=== PATIENT | male | born 1960 | race Caucasian/White ===

== ENCOUNTER 2021-06-18 18:28 | Inpatient (IN) | payer BC, OTHER ==
--- OUTSIDE RECORDS SUMMARY | 2021-06-18 18:31 | XMS REPORT | Continuity of Care Document ---
:1960 Author Organization [facility] t Address [address] [place] [address] Dr. Adames [address] [place] [id number] Care Team Providers Name Role Phone Unavailable Unavailable Unavailable Problems This patient has no known problems. Allergies, Adverse Reactions, Alerts This patient has no known allergies or adverse reactions. Medications This patient has no known medications. Procedures This patient has no known procedures. Results This patient has no known results.
[2021-06-18 19:22] LABS: Absolute Lymphocytes (CBC) 1.4 K/uL (0.7-4.9); Basophils % 0.4 % (0-1.3); Hematocrit 39.6 % (39.6-49.0); Lymphocytes % 16.5 % (15.3-44.8); MPV 9.2 fL (7.6-11.3)
[2021-06-18 19:28] LABS: Protime INR 1.11
[2021-06-18] MEDS ORDERED: MORPHINE 2 MG/ML SYR ONE (19:44)
[2021-06-18] MEDS ORDERED: ONDANSETRON 4 MG/2 ML VIAL ONE (19:44)
[2021-06-18 19:59] LABS: Albumin 3.7 g/dL (3.4-5.0); Bilirubin Direct 0.1 mg/dL (0-0.2); Bilirubin Total 0.4 mg/dL (0.2-1.0); Potassium 3.5 mmol/L (3.5-5.1)
--- NOTE | 2021-06-18 20:04 | RAD REPORT ---
EXAM DESCRIPTION: RAD - Chest Single View - 06/18/2021 7:42 pm CLINICAL HISTORY: CHEST PAIN Chest pain. COMPARISON: Chest Pa And Lat (2 Views) dated 06/11/2016 FINDINGS: Portable technique limits examination quality. The lungs are grossly clear. The heart is normal in size. No displaced fractures. IMPRESSION: No acute intrathoracic process suspected.
[2021-06-18 20:10] LABS: Troponin (Emerg Dept Use Only) 5.73 ng/mL (0.0-0.045)
[2021-06-18] MEDS ORDERED: ASPIRIN 81 MG CHEWABLE TABLET ONE (20:38)
--- NOTE | 2021-06-18 21:30 | RAD REPORT ---
EXAM DESCRIPTION: CT - Chest For Pe Angio - 06/18/2021 9:11 pm CLINICAL HISTORY: Chest pain. CHEST PAIN COMPARISON: No comparisons TECHNIQUE: CT angiogram of the pulmonary arteries was performed with MIP. All CT scans are performed using dose optimization technique as appropriate and may include automated exposure control or mA/KV adjustment according to patient size. FINDINGS: No evidence of pulmonary thromboembolism. No acute aortic finding demonstrated. Mild dependent opacities are present in both posterior lung bases. No focal infiltrate is detected. No significant pericardial or pleural fluid. No concerning bony finding. IMPRESSION: No evidence of pulmonary thromboembolism.
[2021-06-18] MEDS ORDERED: HEPARIN 5000 UNIT/ML 1 ML VIAL ONE (21:36)
[2021-06-18] MEDS ORDERED: HEPARIN/D5W 25,000 UNIT/500 ML BAG IV ONE (21:43)
--- NOTE | 2021-06-18 21:47 | ER ---
Nurse's Notes [facility] Name: Andrei Bee Age: 60 yrs Sex: Male : 1960 Arrival Date: 06/18/2021 Time: 18:29 Bed 16 Private MD: Diagnosis: Non ST elevation [place] Presentation: 06/18 18:39 Chief complaint: Patient states: L arm pain radiates into L jaw and upper chest off/on ll1 since . + palpitations, weakness, and some SOB. Coronavirus screen: Client denies travel out of the [place] in the last 14 days. At this time, the client does not indicate any symptoms associated with coronavirus-19. Ebola Screen: Patient denies travel to an Ebola-affected area in the 21 days before illness onset. Initial Sepsis Screen: Does the patient meet any 2 criteria? No. Patient's initial sepsis screen is negative. Does the patient have a suspected source of infection? No. Patient's initial sepsis screen is negative. Risk Assessment: Do you want to hurt yourself or someone else? Patient reports no desire to harm self or others. Onset of symptoms was June 15, 2021. 18:39 Method Of Arrival: Wheelchair ll1 18:39 Acuity: JESU 3 ll1 Triage Assessment: 23:17 General: Appears in no apparent distress. Behavior is calm, cooperative. Pain: ak2 Complains of pain in chest. Historical: - Allergies: 18:38 No Known Allergies; ll1 - PMHx: 18:38 Hypertensive disorder; Hypothyroidism; Anxiety; GERD; ll1 - PSHx: 18:38 hernia repair; ll1 - Immunization history:: Client reports receiving the 1st dose of the Covid vaccine, Flu vaccine is not up to date. - Social history:: Smoking status: Patient denies any tobacco usage or history of. Screenin:17 Abuse screen: Denies threats or abuse. Denies injuries from another. Nutritional ak2 screening: No deficits noted. Tuberculosis screening: No symptoms or risk factors identified. Fall Risk None identified. Assessment: 23:16 Pain: Pain does not radiate. Pain began 2-3 days ago. Cardiovascular: No deficits noted.ak2 06/19 00:22 General: Appears in no apparent distress. Neuro: No deficits noted. Respiratory: No ak2 deficits noted. 04:15 General: trop:7.95, physician aware. ak2 Vital Signs: 06/18 18:39 BP 131 / 86; Pulse 79; Resp 17; Temp 98.9; Pulse Ox 98% ; Weight 63.5 kg; Height 5 ft. ll1 7 in. (170.18 cm); Pain 5/10; 23:16 BP 136 / 77; Pulse 66; Resp 18; Pulse Ox 97% on R/A; ak2 18:39 Body Mass Index 21.93 (63.50 kg, 170.18 cm) ll1 ED Course: 18:29 Patient arrived in ED. ds1 18:37 Arm band placed on. ll1 18:40 Triage completed. 1 18:41 Lamont Keller PA is PHCP. [facility] 18:41 Qamar Rasmussen MD is Attending Physician. jmm 19:12 Inserted saline lock: 20 gauge in right antecubital area, using aseptic technique. ds4 Blood collected. 19:42 XRAY Chest (1 view) In Process Unspecified. EDMS 21:10 CT Chest For PE Angio In Process Unspecified. EDMS 21:46 Supa Frias is Hospitalizing Provider. jmm 23:17 Patient has correct armband on for positive identification. getter welder on. Pulse ak2 ox on. NIBP on. 23:17 No provider procedures requiring assistance completed. Patient maintains SpO2 ak2 saturation greater than 95% on room air. 06/19 06:59 Sancho Nguyen, RN is Primary Nurse. bp 16:53 Patient admitted, IV remains in place. vg1 Administered Medications: 06/18 19:28 Drug: morphine 2 mg Route: IVP; Site: right antecubital; ak2 19:28 Drug: Zofran (Ondansetron) 4 mg Route: IVP; Site: right antecubital; ak2 20:17 Drug: Aspirin Chewable Tablet 324 mg Route: PO; ak2 21:19 Drug: Heparin ([place]-Bolus No thrombolytic) - HEParin 60 units/kg {Co-Signature: ld1 ak2 (Michelle Hoskins RN).} Route: IVP; Site: right antecubital; 21:57 Drug: Heparin ([place] Drip) 12 units/kg/hr - (HEParin 72619 units, D5W 500 ml) ak2 {Co-Signature: ld1 (Michelle Hoskins RN).} Route: IV; Rate: calculated rate; Site: right antecubital; Outcome: 21:46 Decision to Hospitalize by Provider. gokul 06/19 16:53 Admitted to Tele accompanied by tech, via stretcher, room 224, with chart, Report vg1 called to REGLA Martin Condition: stable Instructed on the need for admit. 17:23 Patient left the ED. iw Signatures: Dispatcher [employer] EDMS Lamont Keller PA PA Cassi Armstrong ds1 Marion May, RN RN iw Philipp Padilla ds4 Sancho Nguyen RN RN Atiya Onofre RN RN vg1 Enmanuel Tony RN RN 1 Willy Ramon ak2 Michelle Hoskins RN ld1
--- NOTE | 2021-06-18 21:48 | EDPHYS ---
Physician Documentation [facility] Name: Andrei Bee Age: 60 yrs Sex: Male : 1960 Arrival Date: 06/18/2021 Time: 18:29 Bed 16 Private MD: ED Physician Qamar Rasmussen HPI: 06/18 18:50 This 60 yrs old Male presents to ER via Wheelchair with complaints of Chest jmm Pain, Arm Pain. 18:50 The patient or guardian reports chest pain that is located primarily in the substernal jmm area. Onset: gradually, 3 day(s) ago. The pain radiates to the left arm, Associated signs and symptoms: Pertinent positives: headache, shortness of breath. The chest pain is described as aching, a pressure. Duration: The patient or guardian reports multiple episodes, that wax and wane. Modifying factors: The symptoms are alleviated by nothing. the symptoms are aggravated by nothing. Historical: - Allergies: 18:38 No Known Allergies; ll1 - PMHx: 18:38 Hypertensive disorder; Hypothyroidism; Anxiety; GERD; ll1 - PSHx: 18:38 hernia repair; ll1 - Immunization history:: Client reports receiving the 1st dose of the Covid vaccine, Flu vaccine is not up to date. - Social history:: Smoking status: Patient denies any tobacco usage or history of. ROS: 18:50 Constitutional: Negative for fever, chills, and weight loss. jmm 18:50 Cardiovascular: Positive for chest pain. 18:50 Respiratory: Positive for shortness of breath. 18:50 All other systems are negative. Exam: 18:50 Head/Face: atraumatic. Eyes: EOMI, no conjunctival erythema appreciated ENT: Moist jmm Mucus Membranes Neck: Trachea midline, Supple Chest/axilla: Normal chest wall appearance and motion. Cardiovascular: Regular rate and rhythm. No edema appreciated Respiratory: Normal respirations, no respiratory distress appreciated Abdomen/GI: Non distended, soft Back: Normal ROM Skin: General appearance color normal MS/ Extremity: Moves all extremities, no obvious deformities appreciated, no edema noted to the lower extremities Neuro: Awake and alert, normal gait Psych: Behavior is normal, Mood is normal, Patient is cooperative and pleasant 18:50 Constitutional: The patient appears in no acute distress, alert, awake. Vital Signs: 18:39 BP 131 / 86; Pulse 79; Resp 17; Temp 98.9; Pulse Ox 98% ; Weight 63.5 kg; Height 5 ft. ll1 7 in. (170.18 cm); Pain 5/10; 23:16 BP 136 / 77; Pulse 66; Resp 18; Pulse Ox 97% on R/A; ak2 18:39 Body Mass Index 21.93 (63.50 kg, 170.18 cm) ll1 MDM: 18:50 Patient medically screened. [facility] 21:44 Data reviewed: vital signs, nurses notes. Counseling: I had a detailed discussion with gokul the patient and/or guardian regarding: the historical points, exam findings, and any diagnostic results supporting the discharge/admit diagnosis, lab results, radiology results, the need for further work-up and treatment in the hospital. ED course: Patient has mild pain in the ED. Vital signs are within normal limits. I discussed this along with lab values and EKG with Dr. Blackburn who recommended heparin drip and will most likely perform cardiac catheterization in the morning.. 06/18 18:51 Order name: Basic Metabolic Panel [facility] 06/18 18:51 Order name: CBC with Diff; Complete Time: 19:[address] [facility] 06/18 18:51 Order name: LFT's; Complete Time: 20:[address] [facility] 06/18 18:51 Order name: Magnesium; Complete Time: 20:[address] [facility] 06/18 18:51 Order name: NT PRO-BNP; Complete Time: 20:[address] [facility] 06/18 18:51 Order name: PT-INR; Complete Time: 20:[address] [facility] 06/18 18:51 Order name: Troponin (emerg Dept Use Only); Complete Time: 20:[address] [facility] 06/18 18:51 Order name: Basic Metabolic Panel; Complete Time: 20:13 [facility] 06/18 20:49 Order name: Troponin (emerg Dept Use Only) [facility] 06/18 20:50 Order name: Troponin (Emerg Dept Use Only); Complete Time: 00:23 [facility] 06/18 21:07 Order name: SARS-COV-2 RT PCR; Complete Time: 21:07 [facility] 06/19 03:22 Order name: CBC with Automated Diff [facility] 06/19 03:44 Order name: Troponin I [facility] 06/18 18:51 Order name: XRAY Chest (1 view); Complete Time: 20:[address] [facility] 06/18 18:51 Order name: EKG; Complete Time: 18:[address] [facility] 06/18 18:51 Order name: Cardiac monitoring; Complete Time: 19:[address] [facility] 06/18 18:51 Order name: EKG - Nurse/Tech; Complete Time: 19:[address] [facility] 06/18 18:51 Order name: IV Saline Lock; Complete Time: 19:[address] [facility] 06/18 18:51 Order name: Labs collected and sent; Complete Time: 19:[address] [facility] 06/18 18:51 Order name: O2 Per Protocol; Complete Time: 19:[address] [facility] 06/18 20:44 Order name: CT Chest For PE Angio; Complete Time: 21:[address] [facility] 06/19 03:44 Order name: Basic Metabolic Panel [facility] 06/19 03:44 Order name: Troponin I [facility] 06/19 03:44 Order name: Lipid Profile [facility] 06/18 18:51 Order name: O2 Sat Monitoring; Complete Time: 19:[address] [facility] Administered Medications: 19:28 Drug: morphine 2 mg Route: IVP; Site: right antecubital; ak2 19:28 Drug: Zofran (Ondansetron) 4 mg Route: IVP; Site: right antecubital; ak2 20:17 Drug: Aspirin Chewable Tablet 324 mg Route: PO; ak2 21:19 Drug: Heparin ([place]-Bolus No thrombolytic) - HEParin 60 units/kg {Co-Signature: ld1 ak2 (Michelle Hoskins RN).} Route: IVP; Site: right antecubital; 21:57 Drug: Heparin ([place] Drip) 12 units/kg/hr - (HEParin 14504 units, D5W 500 ml) ak2 {Co-Signature: ld1 (Michelle Hoskins RN).} Route: IV; Rate: calculated rate; Site: right antecubital; Disposition Summary: 06/18/21 21:46 Hospitalization Ordered Hospitalization Status: Inpatient Admission [facility] Provider: Supa Frias Condition: Stable jm Problem: new jmm Symptoms: are unchanged [facility] Bed/Room Type: Standard [facility] Location: Telemetry/MedSurg (Inpatient)(06/19/21 16:04) bd Room Assignment: 224(06/19/21 16:04) bd Diagnosis - Non ST elevation [place] [facility] Forms: - Medication Reconciliation Form [facility] - SBAR form [facility] Addendum: 06/26/2021 07:05 Co-signature as Attending Physician, Qamar Rasmussen MD I agree with the assessment and r n plan of care. Attestation: The patient's history, exam findings, diagnostics, and a summary of any interventions or procedures was reviewed in detail with Lamont SANDOVAL. Signatures: Dispatcher [employer] EDVT Farzana Duron Padma Adorno RN RN mw Mickail, Joel, PA PA jmm Nieto, Roman, MD MD rn Roszak, Josh, PA PA jr8 Enmanuel Tony RN RN ll1 Willy Ramon2 Michelle Hoskins RN ld1 Corrections: (The following items were deleted from the chart) 06/18 20:12 18:51 CORONAVIRUS+MR.LAB.BRZ ordered. [facility] 21:48 21:46 Telemetry/MedSurg (Inpatient) [facility] 21:48 21:46 [facility] 06/19 16:04 08 21:48 [facility] ER HOLD [facility] 06/19 16:04 06/18 21:48 ERHOLD- [facility]
--- NOTE | 2021-06-18 22:02 | P.HP ---
Certification for Inpatient Patient admitted to: Inpatient With expected LOS: >2 Midnights Patient will require the following post-hospital care: None Practitioner: I am a practitioner with admitting privileges, knowledge of patient current condition, hospital course, and medical plan of care. Services: Services provided to patient in accordance with Admission requirements found in Title 42 Section 412.3 of the Code of Federal Regulations Patient History Date of Service: 06/18/21 Primary Care Provider: Igor Reason for admission: NSTEMI History of Present Illness: This is a 60-year-old male with a history of hypertension, anxiety, acid reflux, hypothyroidism that presented to the emergency room today after having continued left jaw, left arm and chest pain that started this past . Stated that he has had intermittent palpitations and some shortness of breath and dizziness with these episodes. Has never had these problems in the past. Patient was evaluated in the emergency room and found to have a troponin of 5.73. EKG shows Q wave development in the inferior leads but no other ST elevation or depress ion. Patient currently with minimal to no chest pain. Cardiology was consulted and plans to take patient to [facility] in the morning for left heart cath. Patient will be admitted to medicine at this time. Other labs consisted of white cell count of 8.6, hemoglobin 13.3, hematocrit 39.6, platelet 159. Chemistries showed a sodium of 142, potassium 3.5, chloride 110, bicarb 24, BUN 10, creatinine 1.02, glucose of 140. Home medications list reviewed: Yes - Past Medical/Surgical History Diabetic: No - Social History Smoking Status: Never smoker Smoking therapy provided: No Alcohol use: No CD- Drugs: No Caffeine use: Yes Place of Residence: Home Review of Systems General: Unremarkable Eyes: Unremarkable ENT: Unremarkable Respiratory: As per HPI Cardiovascular: As per HPI Gastrointestinal: Unremarkable Genitourinary: Unremarkable Musculoskeletal: Unremarkable Integumentary: Unremarkable Neurological: Unremarkable Lymphatics: Unremarkable Physical Examination - Vital Signs Temperature: 98.9 F Blood Pressure: 131/86 Pulse: 79 Respirations: 18 Pulse Ox (%): 98 (Room air) - Physical Exam General: Alert, In no apparent distress, Oriented x3, Cooperative HEENT: Normocephalic, PERRLA, Mucous membr. moist/pink, EOMI Neck: Supple, 2+ carotid pulse no bruit, JVD not distended, No Thyromegaly, No LAD Respiratory: Clear to auscultation bilaterally, Normal air movement Cardiovascular: No edema, Normal pulses, Regular rate/rhythm, Normal S1 S2, No gallops, No rubs, No murmurs Capillary refill: <2 Seconds Gastrointestinal: Normal bowel sounds, Soft and benign, Non-distended, No ascites, No tenderness, No masses, No rebound, No guarding Musculoskeletal: No clubbing, No swelling, No contractures, No erythema, No tenderness, No warmth Integumentary: No rashes, No breakdown, No significant lesion, No tenderness/swelling, No erythema, No warmth, No cyanosis Neurological: Normal speech, Normal strength at 5/5 x4 extr, Normal tone, Sensation intact, Cranial nerves 3-12 intact, Normal affect Lymphatics: No axilla or inguinal lymphadenopathy - Studies Laboratory Data (last 24 hrs) 06/18/21 19:05: PT 12.8 H, INR 1.11 06/18/21 19:05: WBC 8.60, Hgb 13.3 L, Hct 39.6, Plt Count 159 06/18/21 19:05: Sodium 142, Potassium 3.5, BUN 10, Creatinine 1.02, Glucose 140 H, Magnesium 2.0, Total Bilirubin 0.4, AST 74 H, ALT 28, Alkaline Phosphatase 62 Assessment and Plan - Problems (Diagnosis) (1) Hypertension Current Visit: Yes Status: Chronic Qualifiers: Hypertension type: primary hypertension Qualified Code(s): I10 - Essential (primary) hypertension (2) NSTEMI (non-ST elevated myocardial infarction) Current Visit: Yes Status: Acute (3) Chest pain Current Visit: Yes Status: Acute Qualifiers: Chest pain type: chest pain due to myocardial ischemia Ischemic chest pain type: unstable angina pectoris Qualified Code(s): I20.0 - Unstable angina - Plan 1. Patient admitted to telemetry floor and will be evaluated over the next 1 to 2 days for NSTEMI. 2. Cardiology has been Consulted and plans to take patient for a left heart cath in the morning 3. Patient will have vital signs per protocol 4. Patient will have serial troponins drawn and EKGs as necessary 5. Nausea and pain medicine as needed 6. Blood pressure be controlled for any blood pressure of 160 or higher systolic and 90 or higher diastolic 7. Patient will remain on heparin drip and will start beta-rosio as well 8. We will wait to see what heart cath shows which will guide further treatment Discharge Plan: Home Plan to discharge in: 48 Hours - Advance Directives Does patient have a Living Will: No Does patient have a Durable POA for Healthcare: No - Code Status/Comfort Care Code Status Assessed: Yes Code Status: Full Code Critical Care: No Time Spent Managing Pts Care (In Minutes): 80
[2021-06-18] MEDS ORDERED: MORPHINE 4 MG/ML SYR IV PRN (23:24)
[2021-06-18] MEDS ORDERED: ONDANSETRON 4 MG/2 ML VIAL IV PRN (23:24)
[2021-06-18] MEDS ORDERED: HEPARIN/D5W 25,000 UNIT/500 ML BAG IV SCH (23:24)
[2021-06-19 03:21] LABS: Absolute Lymphocytes (CBC) 1.6 K/uL (0.7-4.9); Basophils % 0.5 % (0-1.3); Hematocrit 39.7 % (39.6-49.0); Lymphocytes % 17.8 % (15.3-44.8); MPV 9.8 fL (7.6-11.3)
[2021-06-19 03:35] LABS: BUN Blood Urea Nitrogen 8 mg/dL (7-18); Bicarbonate 25 mmol/L (21-32); Glucose Level 138 mg/dL (74-106); HDL Cholesterol 49 mg/dL (40-60); LDL Cholesterol, Calculated 106 (<130); Potassium 3.7 mmol/L (3.5-5.1); Sodium Level 142 mmol/L (136-145)
[2021-06-19 03:44] LABS: Troponin I 7.95 ng/mL (0.0-0.045)
[2021-06-19] MEDS: METOPROLOL TAR 25 MG TAB PO SCH (06:00)
[2021-06-19] MEDS ORDERED: METOPROLOL TAR 25 MG TAB ONE (08:50)
[2021-06-19] MEDS ORDERED: ASPIRIN EC 81 MG TAB PO ONE (08:50)
[2021-06-19] MEDS: ASPIRIN EC 81 MG TAB PO SCH (09:00)
--- NOTE | 2021-06-19 09:04 | EKG ---
Test Date: 2021-06-19 Test Time: 00:25:30 Customer Engagement Specialist: MEASUREMENT RESULTS: Intervals: Rate: 59 NM: 152 QRSD: 92 QT: 424 QTc: 419 [place]: P: 64 NM: 152 QRS: -3 T: -31 INTERPRETIVE STATEMENTS: Sinus bradycardia Inferior-posterior infarct, age undetermined Abnormal ECG Compared to ECG 06/18/2021 19:02:03 Sinus rhythm no longer present Myocardial infarct finding still present Electronically Signed On 06-19-21 09:03:53 CDT by Vincent Gama
--- NOTE | 2021-06-19 09:04 | EKG ---
Test Date: 2021-06-19 Test Time: 02:14:30 Leather Leveler: MEASUREMENT RESULTS: Intervals: Rate: 61 [place]: 154 QRSD: 92 QT: 418 QTc: 420 [place]: P: 68 [place]: 154 QRS: -7 T: -31 INTERPRETIVE STATEMENTS: Normal sinus rhythm Inferior infarct, age undetermined Abnormal ECG Compared to ECG 06/19/2021 00:25:30 Sinus bradycardia no longer present Myocardial infarct finding still present Electronically Signed On 06-19-21 09:03:50 CDT by Vincent Gama
--- NOTE | 2021-06-19 09:05 | EKG ---
Test Date: 2021-06-18 Test Time: 19:02:03 Geotechnical Engineer: TUCKER MEASUREMENT RESULTS: Intervals: Rate: 71 [place]: 152 QRSD: 88 QT: 372 QTc: 404 [place]: P: 70 [place]: 152 QRS: 18 T: -37 INTERPRETIVE STATEMENTS: Normal sinus rhythm Inferior-posterior infarct, age undetermined Abnormal ECG No previous ECG available for comparison Electronically Signed On 06-19-21 09:03:55 CDT by Vincent Gama
[2021-06-19] MEDS ORDERED: FENTANYL CITR 100 MCG/2 ML ONE (09:22)
[2021-06-19] MEDS ORDERED: MIDAZOLAM HCL 2 MG/2 ML INJ ONE (09:22)
[2021-06-19] MEDS ORDERED: HEPA 1000U/500MLS 1,000 UNIT/500 ML BAG IV ONE (09:23)
[2021-06-19] MEDS ORDERED: LIDOCAINE 1% 20 ML MDV ONE (09:23)
[2021-06-19] MEDS ORDERED: ATROPINE SULF 1 MG/10 ML SYR IV ONE (09:24)
[2021-06-19] MEDS ORDERED: NITROGLYCERIN/D5W 0 MG/0 ML BTL IV ONE (09:24)
[2021-06-19] MEDS ORDERED: NITROGLYCERIN 100 MCG/ML SYR (for cath lab use only) IV ONE (09:24)
[2021-06-19] MEDS ORDERED: NA CHLORIDE 0.9% 0 ML ONE (09:24)
[2021-06-19] MEDS ORDERED: NA CHLORIDE 0.9% 500 ML ONE (09:52)
--- NOTE | 2021-06-19 11:27 | OP ---
Date of Procedure: 06/19/2021 Surgeon: Vincent aGma MD Indication: The patient admitted to Dr. Frias on 06/18/2021. I saw the patient and brought to the cardiac cath lab technologist on 06/19/2021 because of non-ST elevation myocardial infarction. The patient has a history of hypertension, hypothyroidism, gastroesophageal reflux disease, and strong family history of heart disease. He presented with chest pain and troponin of 7. Procedure In Detail: Brought to the cardiac cath lab technologist, prepped and draped in routine sterile fashion. Given Versed and fentanyl for sedation. A 6-[place]izen [place] sheath introduced in the right common femoral artery. Angiography there was normal. [employer] was used to close the case. Miah catheter left and right were used to do the heart catheterization. He had a normal left main. His RCA had an 80% mid steno sis with what appeared to be an aneurysm right before the stenosis. He had 100% occlusion of the pos terolateral branch. He had a 90% occlusion of the PDA distal. He had a 90% plus stenosis. There is a trifurcation lesion between the LAD, diagonal, and first septal. He had a 90% OM2 stenosis. He w as right dominant. There were no complications. Blood loss was 5 mL. Total conscious sedation was 45 minutes. Postoperative Diagnosis: Severe coronary artery disease. Plan: For CABG. He probably will need a FERREIRA and OM and a RCA graft. We will plan to transfer the patient today to [place] for urgent bypass. I think he is too unstable to go home. NALINI/CADEN Voice ID: [id number] Report ID: [id number]
--- NOTE | 2021-06-19 16:43 | P.PN ---
Subjective Date of Service: 06/19/21 Primary Care Provider: Igor Chief Complaint: NSTEMI Cardiac catheterization performed today. Patient noted to have severe coronary artery disease. Cardiology recommended transfer for bypass. Physical Examination - Vital Signs Temperature: 98.2 F Blood Pressure: 105/70 Pulse: 62 Respirations: 18 Pulse Ox (%): 98 - Physical Exam General: In no apparent distress, Oriented x3 HEENT: Mucous membr. moist/pink Neck: Supple Respiratory: Clear to auscultation bilaterally, Normal air movement Cardiovascular: No edema, Regular rate/rhythm Gastrointestinal: Soft and benign, Non-distended Musculoskeletal: No swelling Neurological: Normal strength at 5/5 x4 extr - Studies Laboratory Data (last 24 hrs) 06/18/21 19:05: PT 12.8 H, INR 1.11 06/18/21 19:05: WBC 8.60, Hgb 13.3 L, Hct 39.6, Plt Count 159 06/18/21 19:05: Sodium 142, Potassium 3.5, BUN 10, Creatinine 1.02, Glucose 140 H, Magnesium 2.0, Total Bilirubin 0.4, AST 74 H, ALT 28, Alkaline Phosphatase 62 Assessment And Plan - Current Problems (Diagnosis) (1) CAD (coronary artery disease) Current Visit: Yes Status: Acute (2) NSTEMI (non-ST elevated myocardial infarction) Current Visit: Yes Status: Acute (3) Hypertension Current Visit: Yes Status: Chronic Qualifiers: Hypertension type: primary hypertension Qualified Code(s): I10 - Essential (primary) hypertension - Plan Continue aspirin, metoprolol, add Plavix. Start statins. Blood pressure is soft. Monitor. Cardiology arranged for transfer for cardiac bypass.
[2021-06-19 17:14] VITALS: BMI 20.2
[2021-06-19] MEDS ORDERED: ATORVASTATIN 40 MG TAB PO SCH (21:00)
[2021-06-19] MEDS ORDERED: ACETAMINOPHEN 500 MG TAB PO PRN (22:39)
[2021-06-20] MEDS: METOPROLOL TAR 25 MG TAB PO SCH (05:47)
[2021-06-20 06:12] VITALS: O2SAT 96
[2021-06-20 06:32] LABS: Absolute Lymphocytes (CBC) 1.5 K/uL (0.7-4.9); Basophils % 0.4 % (0-1.3); Hematocrit 38.6 % (39.6-49.0); Lymphocytes % 18.5 % (15.3-44.8); MPV 9.6 fL (7.6-11.3); RBC Red Blood Cell Count 4.19 M/uL (4.33-5.43)
[2021-06-20 06:38] LABS: BUN Blood Urea Nitrogen 14 mg/dL (7-18); Bicarbonate 25 mmol/L (21-32); Glucose Level 107 mg/dL (74-106); Potassium 3.6 mmol/L (3.5-5.1); Sodium Level 139 mmol/L (136-145)
[2021-06-20] MEDS: ASPIRIN EC 81 MG TAB PO SCH (08:14)
[2021-06-20 08:24] VITALS: BP 93/53; TEMP 99
[2021-06-20] MEDS ORDERED: CLOPIDOGREL 75 MG TABLET PO SCH (09:00)
--- NOTE | 2021-06-20 12:20 | P.DS ---
Admission Date: 06/18/21 Discharge Date: 06/20/21 Primary Care Provider: Igor Disposition: TRANSFER TO [facility] Discharge Condition: GOOD Reason for Admission: NSTEMI Consultations: Cardiology - Dr. Gama Procedures: Cardiac catheterization (06/19) by Dr. Gama Normal left main. RCA: 80% mid stenosis with what appeared to be an aneurysm right before the stenosis. 100% occlusion of the posterior lateral branch. 90% occlusion of the PDA distal. 90% plus stenosis. There is a trifurcation lesion between the LAD, diagonal, and first septal. He had a 90% OM 2 stenosis. He was right dominant. Problem List NSTEMI Severe multivessel CAD Hypertension Brief History of Present Illness: 60-year-old male with a history of hypertension, anxiety, acid reflux, hypothyroidism that presented to the emergency room today after having continued left jaw, left arm and chest pain that started this past . Stated that he has had intermittent palpitations and some shortness of breath and dizziness with these episodes. Has never had these problems in the past. Patient was evaluated in the emergency room and found to have a troponin of 5.73. EKG shows Q wave development in the inferior leads but no other ST elevation or depression. Patient currently with minimal to no chest pain. Cardiology was consulted and plans to take patient to [facility] in the morning for left heart cath. Patient will be admitted to medicine at this time. Other labs consisted of white cell count of 8.6, hemoglobin 13.3, hematocrit 39.6, platelet 159. Chemistries showed a sodium of 142, potassium 3.5, chloride 110, bicarb 24, BUN 10, creatinine 1.02, glucose of 140. Hospital Course: Troponins were trended, peaked at 7.95. He was taken for cardiac catheterization on 06/19/21. He was found to have severe multivessel coronary artery disease. Cardiology recommended transfer to tertiary care center for CABG. Patient was accepted [facility] in [place]. He was treated with aspirin/statin/metoprolol. Heparin drip as well. Plavix started after catheterization. On day of discharge he reported feeling better, denied any chest pain /pressure. Vital Signs/Physical Exam: Physical Exam General: In no apparent distress, Oriented x3 HEENT: Mucous membr. moist/pink Respiratory: Clear to auscultation bilaterally, Normal air movement Cardiovascular: No edema, Regular rate/rhythm Gastrointestinal: Soft, non-tender, Non-distended Ext: R femoral access site: dressing c/d/i, no palpable hematoma or visible bleeding Temp Pulse Resp BP Pulse Ox 99 F 57 19 93/53 L 96 06/20/21 12:00 06/20/21 12:00 06/20/21 12:00 06/20/21 12:00 06/20/21 08:00 Laboratory Data at Discharge: WBC 8.20 K/uL (4.3-10.9) 06/20/21 06:10 Hgb 13.2 g/dL (13.6-17.9) L 06/20/21 06:10 Hct 38.6 % (39.6-49.0) L 06/20/21 06:10 Plt Count 130 K/uL (152-406) L 06/20/21 06:10 PT 12.8 SECONDS (9.5-12.5) H 06/18/21 19:05 INR 1.11 06/18/21 19:05 APTT 54.0 SECONDS (24.3-36.9) H 06/20/21 06:10 Sodium 139 mmol/L (136-145) 06/20/21 06:10 Potassium 3.6 mmol/L (3.5-5.1) 06/20/21 06:10 BUN 14 mg/dL (7-18) 06/20/21 06:10 Creatinine 0.86 mg/dL (0.55-1.3) 06/20/21 06:10 Glucose 107 mg/dL (74-106) H 06/20/21 06:10 Magnesium 2.0 mg/dL (1.8-2.4) 06/18/21 19:05 Total Bilirubin 0.4 mg/dL (0.2-1.0) 06/18/21 19:05 AST 74 U/L (15-37) H 06/18/21 19:05 ALT 28 U/L (12-78) 06/18/21 19:05 Alkaline Phosphatase 62 U/L (45-117) 06/18/21 19:05 Troponin I 7.95 ng/mL (0.0-0.045) H* 06/19/21 02:40 Triglycerides 124 mg/dL (<150) 06/19/21 02:40 Cholesterol 180 mg/dL (<200) 06/19/21 02:40 HDL Cholesterol 49 mg/dL (40-60) 06/19/21 02:40 Cholesterol/HDL Ratio 3.67 06/19/21 02:40 Home Medications: Aripiprazole [Abilify] 5 mg PO DAILY 06/19/21 Levothyroxine [Synthroid] 75 mcg PO [id number] 06/19/21 Omeprazole [Prilosec] 40 mg PO DAILY 06/19/21 Propranolol [Inderal] 10 mg PO DAILY 06/19/21 Sertraline [Zoloft] 200 mg PO DAILY 06/19/21 lisinopriL [Lisinopril] 10 mg PO DAILY 06/19/21 Physician Discharge Instructions: PROBLEM: Coronary artery disease, Cardiac catheterization GOAL: Clear understanding of disease process INSTRUCTIONS: You were found to have multiple severe coronary artery disease. You are transferred to [facility] in [place] to undergo coronary artery bypass grafting Diet: Heart healthy, Nothing by mouth after midnight Activity: No heavy lifting over 10 lbs IMMUNIZATION Influenza Vaccine Indicated: Influenza Vaccine Given: Date Given: Pneumonia Vaccine Indicated: No Pneumonia Vaccine Given: Date Given: . Followup: Vincent Gama MD [ACTIVE - CAN ADMIT] - Nigel Costa MD [Primary Care Provider] - Time spent managing pt's care (in minutes): 40
--- NOTE | 2021-06-22 11:03 | PN ---
Date of Progress Note: 06/20/2021 Mr. Bee had heart catheterization on 06/19/2021 revealing severe coronary artery disease requiri ng coronary artery bypass surgery. Overnight, he did well. There were no complications as far as hi s groin is concern. His vital signs remained stable, afebrile. Telemetry is normal. He is still aw aiting transfer to [facility], Dr. Palm for bypass surgery. I would not change any of h is prescription. He is not on Plavix at this point. Continue aspirin, statin, metoprolol. Hopefull y, he will be transferred today and we will see him in the office eventually after bypass. NALINI/CADEN Voice ID: [id number] Report ID: [id number]
--- NOTE | 2021-06-22 11:21 | CON ---
Date of Consultation: 06/19/2021 Reason For Consultation: Ltg-[id number] myocardial infarction. History Of Present Illness: Mr. Bee is a 60-year-old who has a history of hypertension, anxiety , gastroesophageal reflux disease, and hypothyroidism and came in with chest pain, was found to have a troponin of 7 with elevated BNP. His chest pain was classic for unstable angina and acute coronary syndrome. EKG was nonspecific. Chest x-ray was negative. Allergies: NONE. Review of Systems: Negative. Social History: Negative. Family History: Noncontributory. Medications At Home: None. Physical Examination: Vital Signs: Stable. He was afebrile. HEENT: Negative. Neck: Supple without any bruit, lymphadenopathy, JVD, or thyromegaly. Chest: Clear to auscultation and percussion. Cardiac: Revealed a regular rhythm and rate. No murmurs, gallops, or rubs. Abdomen: Benign. Extremities: Revealed no clubbing, cyanosis, or edema. Diagnostic Data: As stated earlier. Impression And Plan: 1.Lep-ZZ-ocecbwypt myocardial infarction. 2.Hypertension. 3.Anxiety. 4.Gastroesophageal reflux disease. 5.Hypothyroidism. Mr. Bee has a normal hemoglobin, normal creatinine, elevated troponin, elevated BNP. Secondary to njz-FZ-niasmkwnk myocardial infarction, we will keep on aspirin, Plavix, Lovenox, metoprolol, stat in. Plan of heart catheterization on him to define his coronary anatomy. The patient understands th e risk and the benefits of the procedure and he agreed to proceed. NALINI/CADEN Voice ID: [id number] Report ID: [id number]
== END 2021-06-20 14:05 | disposition short-term general hospital (02) | DRG 282 ==
LOC: ER 18:28 → ERHOLD 21:46 → 2ND 06-19 16:54
PROVIDERS: ADMIT Internal Medicine; ATTEND Internal Medicine
PROC: B201YZZ Plain Radiography of Multiple Coronary Arteries using Other Contrast (ICD-10-PCS; principal; 2021-06-19)
DX: I21.4 Non-ST elevation (NSTEMI) myocardial infarction (principal); I25.10 Atherosclerotic heart disease of native coronary artery without angina pectoris; I10 Essential (primary) hypertension; E03.9 Hypothyroidism, unspecified; K21.9 Gastro-esophageal reflux disease without esophagitis; Z82.49 Family history of ischemic heart disease and other diseases of the circulatory system; Z20.822 Contact with and (suspected) exposure to COVID-19
CPT/HCPCS: 36415; 71045; 71275; 80048; 80061; 80076; 83735; 83880; 84484; 85025; 85610; 85730; 93005; 93458; 96374; 96375; 99285; C1893; J0583; J1644; J2250; J2270; J2405; J3010; J7040; Q9967; U0003